=== PATIENT | female | born 1985 | race Two or more races ===

== ENCOUNTER 2017-03-10 22:54 | Emergency (ER) | payer BC ==
[~2017-03-10] VITALS: Ht 175.3 cm; Wt 58.5 kg
[2017-03-10 23:15] VITALS: BP 115/78
--- NOTE | 2017-03-10 23:22 | Emergency Room Report ---
History of Present Illness General Chief Complaint: General Complaint Source: Patient Present Illness HPI This is a 31-year-old female with a past medical history of hypertrophic cardiac myopathy. She has an AICD. She also has a history of migraine with infrequent exacerbation. The last 2 days she's been having a viral illness with coughing congestion and sinus pressure. Tonight she had some spots in her left eye and then had tunnel vision mostly in the left side. She was concerned and became panicky. She fell her heart beating fast and developed left arm pain. That is improve. Condition improved. She still feels lightheaded. No nausea no vomiting. No chest pain. No firing of her AICD. Allergies: Coded Allergies: No Known Allergies (Unverified , 03/10/17) Patient History Past Medical History: see triage record, old chart reviewed Past Surgical History: other - AICD Pertinent Family History: none Social History: Denies: smoking Last Menstrual Period: 3 weeks ago Now: No Immunizations: other Reviewed Nursing Documentation: PMH: Agreed, PSxH: Agreed Nursing Documentation-PMH Hx Cardiac Problems: Yes - Congenital heart condtion, ICD Review of Systems Eye: Denies: blurred vision, eye pain ENT: Denies: ear pain, nose congestion, throat swelling Respiratory: Denies: cough, shortness of breath Cardiovascular: Denies: chest pain, palpitations Gastrointestinal: Denies: abdominal pain, diarrhea, nausea, vomiting Musculoskeletal: Denies: back pain, joint pain Skin: Denies: rash Neurological: Denies: headache, numbness Endocrine: Denies: increased thirst, increased urine Hematologic/Lymphatic: Denies: easy bruising All Other Systems: negative except mentioned in HPI Physical Exam Vital Signs Date Time Temp Pulse Resp B/P Pulse Ox O2 Delivery O2 Flow Rate FiO2 03/10/17 22:59 98.1 84 16 115/78 98 Room Air vitals normal Sp02 EP Interpretation: reviewed, normal General Appearance: well appearing, no apparent distress, alert Head: normocephalic, atraumatic Eyes: bilateral eye EOMI, bilateral eye PERRL, bilateral eye other - slight decreased in vision of lower quadrant of visual field on left eye. ENT: hearing grossly normal, normal pharynx Neck: full range of motion, supple, no meningismus Respiratory: chest non-tender, lungs clear, normal breath sounds Cardiovascular #1: regular rate, rhythm, systolic murmur - 02/03 Gastrointestinal: normal bowel sounds, non tender, no mass, no organomegaly, no bruit, non-distended Musculoskeletal: back normal, gait/station normal, normal range of motion Psychiatric: mood/affect normal Skin: warm/dry Medical Decision Making Diagnostic Impression: Primary Impression: Headache Qualified Codes: R51 - Headache Additional Impression: Palpitations ER Course Patient presents with headache, most likely ocular migraine. Vision is back to normal now. No blind spots. She had this in the past. No evidence of bleed, meningitis, or neoplastic process. From a cardiac standpoint she probably had palpitation from anxiety. No evidence of PE, ACS, dissection to name a few. Her murmur is chronic in nature. She already have an AICD. There was no firing. We'll discharge him with reassurance. CT/MRI/US Diagnostic Results CT/MRI/US Diagnostic Results : Imaging Test Ordered: CT head Impression negative per radiologist Last Vital Signs Date Time Temp Pulse Resp B/P Pulse Ox O2 Delivery O2 Flow Rate FiO2 03/10/17 23:15 98.1 16 115/78 98 Room Air 03/10/17 22:59 84 Status: improved Disposition: HOME, SELF-CARE Condition: Stable Additional Instructions: Followup with your Dr. in 2-3 days. Return if symptom worsen. SCOTT HO M.D. Mar 10, 2017 23:22
[2017-03-11 00:10] VITALS: BP 115/78
[2017-03-11] MEDS ORDERED: IBUPROFEN600 MG ORAL (00:12)
--- NOTE | 2017-03-11 12:22 | Diagnostic Imaging Report ---
Indication: Altered mental status Technique: Continuous helical CT scanning of the head was performed without intravenous contrast material. Axial and coronal 5 mm sections were generated. Radiation dose was minimized using automated exposure control Dose: Total Dose Length Product - DLP [address] Dose Index - CTDIvol(s) 70.38 mGy. Comparison: None Findings: The ventricular system is normal in size and configuration. There is no shift of midline structures. No abnormal extra-axial fluid collections are noted. There is no evidence of intracerebral bleeding. No other abnormal high or low density areas are noted within the brain. There is disease in the left sphenoid sinus. The calvarium is intact. The included orbits are unremarkable. Impression: Normal CT scan of the head without contrast material. Incidental finding of sphenoid sinus disease The CT scanner at [facility] is accredited by the [employer] and the scans are performed using protocols designed to limit radiation exposure to as low as reasonably achievable to attain images of sufficient resolution adequate for diagnostic evaluation.
--- NOTE | 2017-03-12 15:43 | Cardiology Report ---
APPROVED REPORT EKG Measurement Heart [id number] Sinus rhythm with marked sinus arrhythmia Right bundle branch block, plus right ventricular hypertrophy Possible Lateral infarct, age undetermined Possible Inferior infarct, age undetermined Abnormal ECG
== END 2017-03-11 00:16 | disposition home or self-care (01) ==
LOC: EMR 23:26
DX: R51 Headache (principal); R00.2 Palpitations; Z95.810 Presence of automatic (implantable) cardiac defibrillator; I45.10 Unspecified right bundle-branch block; I51.7 Cardiomegaly
CPT/HCPCS: 70450; 93005; 99284